=== PATIENT | female | born 1940 | race Caucasian/White ===

== ENCOUNTER → 2016-10-08 | Outpatient (CLI) | payer OTHER ==
--- NOTE | 2016-10-08 15:20 | MA ---
Screening Digital Mammogram With iCAD Analysis Clinical Indications: Routine screening. Her mother was diagnosed with breast cancer in her 60s and a grandmother in her 70s. Technique: Standard cephalocaudal and mediolateral oblique projections were obtained. This examinatio n was processed by the iCAD computer aided detection system. Comparison: September 2015, January 2015, September 2013, July 2012, June 2011, June 2010, 2008, May 2008. Breast density: Type B; Scattered fibroglandular densities. Findings: CAD was reviewed. No masses, suspicious calcifications or other signs of malignancy are id entified. There has been no significant change in the appearance of either breast. Impression: Negative mammogram. BI-RADS 1. Recommendation: Routine mammographic screening in one year as long as physical examination [facility] negativ [facility]. Negative mammography should not preclude additional workup of a clinically suspicious finding. The patient's information is entered into a reminder system with a target due date for her next mammo gram.
--- NOTE | 2016-10-10 07:54 | DX ---
DEXA Bone Densitometry Technique: DEXA scan was performed on [employer] W Bone Densitometer Indication: Special screening examination Results: Lumbar Spine BMD: 1.132 T-score: 0.8 Total Hip (Right) BMD: 1.062 T-score: (1.0 Femoral Neck (Right) BMD: 0.890 T-score: +0.4 Total Hip (Left) BMD: 1.038 T-score: +0.8 Femoral Neck (Left) BMD: 0.907 T-score: +0.5 CONCLUSION: Normal bone mineral density ADDITIONAL COMMENTS: Consider repeating the study in 3-4 years only if clinically indicated NOTE: The risk of osteoporotic fractures increases approximately twofold for each 1.0 SD decrease in T-score. The T-score represents the standard deviations from a young normal, same sex, reference po pulation. Low bone density is not the only risk factor for fracture. Clinical factors to consider include fall risk, previous osteoporotic fractures, family history of fractures, smoking, and low body weight. Patients who have an unexpectedly low BMD may need to be evaluated for secondary causes of low bone m ineral density. In comparing the present study to a prior study, lack of a significant increase or decrease in BMD ma y signify efficacy of the patient's present treatment. Bone mineral density measurements performed with densitometers produced by different manufacturers ar e not comparable. For the most reproducible BMD measurement, subsequent exams should be performed on the same densitometer.
== END ==
LOC: BMCIMAGING 10:19
PROVIDERS: ATTEND Nurse Practitioner Adult Health
DX: Z12.31 Encounter for screening mammogram for malignant neoplasm of breast (principal); Z13.820 Encounter for screening for osteoporosis
CPT/HCPCS: G0202

== ENCOUNTER → 2017-10-13 | Outpatient (CLI) | payer OTHER | LOC: BMCIMAGING 12:44 | PROVIDERS: ATTEND Nurse Practitioner Adult Health | DX: Z12.31 Encounter for screening mammogram for malignant neoplasm of breast (principal); Z85.3 Personal history of malignant neoplasm of breast ==

== ENCOUNTER → 2018-09-11 | Outpatient (CLI) | payer OTHER | LOC: FIMAGING 14:32 | PROVIDERS: ATTEND Obstetrics & Gynecology | DX: N95.0 Postmenopausal bleeding (principal); R19.09 Other intra-abdominal and pelvic swelling, mass and lump ==

== ENCOUNTER → 2018-11-25 | Day surgery (SDC) | payer OTHER | END | disposition home or self-care (01) | LOC: FIMAGING 17:08 | PROVIDERS: ATTEND Internal Medicine Hematology & Oncology | PROC: 02HV33Z Insertion of Infusion Device into Superior Vena Cava, Percutaneous Approach (ICD-10-PCS; principal; 2018-11-25) | DX: C54.1 Malignant neoplasm of endometrium (principal) | CPT/HCPCS: 36569; 77001; C1751 ==

== ENCOUNTER → 2018-12-04 | Outpatient (CLI) | payer OTHER ==
[~2018-12-04] MED LIST: LIDOCAINE 1% 300 MG/30 ML SDV ONE
== END ==
LOC: FIMAGING 10:10
PROVIDERS: ATTEND Physician Assistant
PROC: 0W9F3ZZ Drainage of Abdominal Wall, Percutaneous Approach (ICD-10-PCS; principal; 2018-12-04)
DX: R18.8 Other ascites (principal); C54.1 Malignant neoplasm of endometrium

== ENCOUNTER 2019-01-01 10:44 | Observation (INO) | payer OTHER ==
[2019-01-01] MEDS ORDERED: ACETAMINOPHEN 325 MG TAB PO PRN (12:32)
[2019-01-01] MEDS ORDERED: ONDANSETRON 4 MG/2 ML VIAL IVP PRN (12:32)
[2019-01-01] MEDS ORDERED: ONDANSETRON DISINTEGRATING 4 MG TAB PO PRN (12:32)
[2019-01-01] MEDS ORDERED: oxyCODONE IR 5 MG TAB PO PRN (12:36)
[2019-01-01] MEDS: NS 1,000 ML IV SCH (15:02)
[2019-01-01] MEDS: ALTEPLASE 2 MG VIAL IVP PRN ×2 (15:50→17:46)
[2019-01-01] MEDS ORDERED: CEFEPIME HCL 2 GM in NS 100 ML IV SCH (16:00)
[2019-01-01] MEDS ORDERED: LIDOCAINE 1% 300 MG/30 ML SDV ONE (16:06)
[2019-01-01] MEDS: CEFEPIME HCL 2 GM in NS 100 ML IV SCH (16:50)
[2019-01-01] MEDS: FILGRASTIM-SNDZ 300 MCG/0.5 ML SYR SC SCH (16:56)
[2019-01-01] MEDS ORDERED: PROTOCOL MAGNESIUM 1 DOSE IV PRN (18:23)
[2019-01-01] MEDS ORDERED: PROTOCOL POTASSIUM 1 DOSE MISC PRN (18:23)
[2019-01-01] MEDS ORDERED: PROTOCOL CALCIUM 1 DOSE IV PRN (18:23)
[2019-01-01] MEDS ORDERED: POTASSIUM CL 10 MEQ TAB PO ONE (20:11)
[2019-01-01] MEDS ORDERED: LOPERAMIDE HCL 2 MG CAP PO PRN (22:58)
[2019-01-02] MEDS: CEFEPIME HCL 2 GM in NS 100 ML IV SCH ×2 (05:05→16:34)
[2019-01-02] MEDS ORDERED: POTASSIUM CL 10 MEQ TAB PO ONE (07:33)
[2019-01-02] MEDS: LOPERAMIDE HCL 2 MG CAP PO PRN ×2 (08:48→20:28)
[2019-01-02] MEDS: PANTOPRAZOLE SODIUM 40 MG TAB PO SCH (09:01)
[2019-01-02] MEDS: ENOXAPARIN 40 MG/0.4 ML SYR SC SCH (09:02)
[2019-01-02] MEDS: NS 1,000 ML IV SCH (10:21)
[2019-01-02] MEDS ORDERED: MAGNESIUM SULF 2 GM/WATER 50 ML IV ONE (10:55)
[2019-01-02] MEDS: NYSTATIN SUSP 500000 UNIT/5 ML UD LIQ PO SCH ×3 (11:17→20:13)
[2019-01-02] MEDS ORDERED: POTASSIUM CL 20 MEQ/15 ML UDCUP PO ONE (14:01)
[2019-01-02] MEDS: FILGRASTIM-SNDZ 300 MCG/0.5 ML SYR SC SCH (14:54)
[2019-01-02] MEDS ORDERED: POTASSIUM CL 20 MEQ PKT PO ONE (15:00)
[2019-01-02] MEDS: POTASSIUM Cl (KCl) 100 ML IV SCH ×6 (18:04→23:04)
[2019-01-02] MEDS ORDERED: NS W/ 20 KCl/L 1,000 ML IV SCH (21:15)
[2019-01-03] MEDS: POTASSIUM Cl (KCl) 100 ML IV SCH ×9 (01:04→22:33)
[2019-01-03] MEDS: CEFEPIME HCL 2 GM in NS 100 ML IV SCH (05:04)
[2019-01-03] MEDS: NYSTATIN SUSP 500000 UNIT/5 ML UD LIQ PO SCH ×4 (06:42→20:17)
[2019-01-03] MEDS ORDERED: MAGNESIUM SULF 1 GM/DEXTROSE 100 ML IV ONE (08:16)
[2019-01-03] MEDS ORDERED: CALCIUM GLUCONATE 50 ML IV ONE (08:17)
[2019-01-03] MEDS: PANTOPRAZOLE SODIUM 40 MG TAB PO SCH (11:02)
[2019-01-03] MEDS: FILGRASTIM-SNDZ 300 MCG/0.5 ML SYR SC SCH (12:57)
[2019-01-03] MEDS: ENOXAPARIN 40 MG/0.4 ML SYR SC SCH (13:10)
[2019-01-03] MEDS ORDERED: MBX SOLN 30 ML BOTTLE PO PRN (19:56)
[2019-01-04] MEDS: NYSTATIN SUSP 500000 UNIT/5 ML UD LIQ PO SCH ×2 (05:14→14:03)
[2019-01-04] MEDS ORDERED: POTASSIUM Cl (KCl) 50 ML IV SCH (07:44)
[2019-01-04] MEDS ORDERED: MAGNESIUM SULF 1 GM/DEXTROSE 100 ML IV ONE (07:44)
[2019-01-04] MEDS ORDERED: CALCIUM GLUCONATE 50 ML IV ONE (07:44)
[2019-01-04] MEDS: PANTOPRAZOLE SODIUM 40 MG TAB PO SCH (08:52)
[2019-01-04] MEDS: ENOXAPARIN 40 MG/0.4 ML SYR SC SCH (08:52)
[2019-01-04] MEDS ORDERED: POTASSIUM CL 20 MEQ/15 ML UDCUP PO ONE (09:00)
[2019-01-04] MEDS ORDERED: LIDOCAINE 1% 300 MG/30 ML SDV ONE (11:31)
[2019-01-04] MEDS ORDERED: ALBUMIN 25% 100 ML IV ONE (13:25)
== END 2019-01-04 15:08 | disposition home health service (06) ==
DX: C54.1 Malignant neoplasm of endometrium (principal); D70.9 Neutropenia, unspecified; K52.1 Toxic gastroenteritis and colitis; E87.6 Hypokalemia; R18.0 Malignant ascites; Z45.2 Encounter for adjustment and management of vascular access device; J43.9 Emphysema, unspecified; Z85.3 Personal history of malignant neoplasm of breast; Z85.820 Personal history of malignant melanoma of skin; Z85.118 Personal history of other malignant neoplasm of bronchus and lung; Z87.891 Personal history of nicotine dependence
CPT/HCPCS: 49083; G0378; G0379; J0610; J0692; J1650; J2997; J3475; J3480; P9047; Q5101

== ENCOUNTER 2019-01-19 11:01 | Day surgery (SDC) | payer OTHER ==
[2019-01-19] MEDS ORDERED: fentaNYL 100 MCG/2 ML INJ IVP PRN (11:49)
[2019-01-19] MEDS ORDERED: HEPARIN 10,000 UNIT/10 ML MDV (1,000 UNIT/ML) IVP PRN (11:49)
[2019-01-19] MEDS ORDERED: GLUCAGON HCL 1 MG VIAL IVP PRN (11:49)
[2019-01-19] MEDS ORDERED: ceFAZolin 2 GM/DEXTROSE 100 ML IV ONE (11:49)
[2019-01-19] MEDS ORDERED: MIDAZOLAM 2 MG/2 ML VIAL IVP PRN (11:49)
[2019-01-19] MEDS ORDERED: FLUMAZENIL 0.5 MG/5 ML MDV IVP PRN (11:49)
[2019-01-19] MEDS ORDERED: PROTAMINE SULFATE 50 MG/5 ML VIAL IVP PRN (11:49)
[2019-01-19] MEDS ORDERED: MEPERIDINE 25 MG/ML SYR IVP PRN (11:49)
[2019-01-19] MEDS ORDERED: NALOXONE HCL 0.4 MG/ML INJ IVP PRN (11:49)
[2019-01-19] MEDS ORDERED: ALTEPLASE 2 MG VIAL IVP PRN (11:49)
[2019-01-19] MEDS ORDERED: NS 1,000 ML IV SCH (12:00)
--- NOTE | 2019-01-19 12:27 | PDPROPOC ---
Sedation Plan of Care ASA Classification: ASA 3 Mallampati Score: Class 2 Mallampati Reference Image:
--- NOTE | 2019-01-19 12:27 | PDRADPRE ---
Radiology History & Physical Indication for procedure: cancer Home medications: Omeprazole [Prilosec 20 mg] 20 mg PO DAILY 10/13/12 [Last Taken 01/01/19] Aspirin [Aspirin 81mg (*)] 81 mg PO DAILY 04/15/16 [Last Taken 12/31/18] Atorvastatin Calcium [Lipitor 20 mg (*)] 20 mg PO DAILY 04/15/16 [Last Taken ] Acetaminophen [Tylenol 325mg (*)] 325 mg PO Q6 PRN 01/01/19 [Last Taken Unknown] Docusate Sodium [Colace 100 MG (*)] 100 mg PO BID PRN 01/01/19 [Last Taken Unknown] Loperamide HCl [Imodium 2 mg (*)] 2 mg PO PRN PRN 01/01/19 [Last Taken Unknown] Prochlorperazine Maleate [Compazine 10mg (*)] 10 mg PO TID PRN 01/01/19 [Last Taken Unknown] oxyCODONE IR [Oxycodone Ir (*)] 5 mg PO DAILY PRN 01/01/19 [Last Taken Unknown] Allergies/Adverse Reactions: No Known Allergies Allergy (Verified 10/13/12 17:06) Mental status: A&Ox3
[2019-01-19] MEDS ORDERED: IOPAMIDOL (ISOVUE-300) 100 ML BTL ONE (12:51)
[2019-01-19] MEDS ORDERED: LIDOCAINE 1% 300 MG/30 ML SDV ONE (12:51)
[2019-01-19] MEDS ORDERED: LIDO/EPI 1% **for epidural** 30 ML SDV ONE (13:15)
[2019-01-19] MEDS ORDERED: ACETAMINOPHEN 325 MG TAB PO PRN (13:39)
[2019-01-19] MEDS ORDERED: ONDANSETRON 4 MG/2 ML VIAL IVP PRN (13:39)
[2019-01-19 15:15] VITALS: BP 124/61
== END 2019-01-19 15:10 | disposition home or self-care (01) ==
LOC: FIMAGING 11:01
PROVIDERS: ATTEND Internal Medicine Hematology & Oncology
PROC: 0D9W30Z Drainage of Peritoneum with Drainage Device, Percutaneous Approach (ICD-10-PCS; principal; 2019-01-19 14:00)
DX: R18.0 Malignant ascites (principal); C54.1 Malignant neoplasm of endometrium; G62.0 Drug-induced polyneuropathy; Z85.118 Personal history of other malignant neoplasm of bronchus and lung; Z85.3 Personal history of malignant neoplasm of breast; Z85.820 Personal history of malignant melanoma of skin; Z87.891 Personal history of nicotine dependence
CPT/HCPCS: J0690; J1644; J2250; J2310; J3010; Q9967